=== PATIENT | male | born 1965 | race Caucasian/White ===

== ENCOUNTER 2023-08-11 11:32 | Outpatient (CLI) | payer BC | END 2023-08-11 11:33 | disposition home or self-care (01) | LOC: LABBT 11:32 | PROVIDERS: ATTEND Urology | DX: Z01.812 Encounter for preprocedural laboratory examination (principal); N20.1 Calculus of ureter | CPT/HCPCS: 87086 ==

== ENCOUNTER 2023-08-17 12:06 | Day surgery (SDC) | payer BC ==
[2023-08-11 11:49] VITALS: BMI 23.7
[2023-08-17] MEDS ORDERED: Lidocaine 1% PF 5 ML VIAL ONE ×2 (15:03→15:14)
[2023-08-17] MEDS ORDERED: Succinylcholine 200 MG/10 ml SYRINGE FS ONE (15:03)
[2023-08-17] MEDS ORDERED: fentaNYL 50 mcg/mL 1 mL Vial ONE (15:03)
[2023-08-17] MEDS ORDERED: Ondansetron PF 4 MG/2 ML Vial ONE ×2 (15:03→15:14)
[2023-08-17] MEDS ORDERED: PROPOFOL 20 ML ONE (15:03)
[2023-08-17] MEDS ORDERED: Iopamidol 15 ML ONE (15:06)
[2023-08-17] MEDS ORDERED: LevoFLOXacin 500 mg/D5W 100 ML BAG ONE (15:10)
[2023-08-17] MEDS ORDERED: Glycopyrrolate 0.2 MG/ML 5 ML SYRINGE ONE ×2 (15:14→16:01)
[2023-08-17] MEDS ORDERED: Dexamethasone 20 MG/5 ML VIAL ONE ×2 (15:14→15:25)
[2023-08-17] MEDS ORDERED: PHENYLEPHRINE-NS 100 MCG/ML 10 ML SYRINGE ONE ×2 (15:14→15:26)
[2023-08-17] MEDS ORDERED: PROPOFOL 200 MG/20 ML VIAL ONE (15:14)
[2023-08-17] MEDS ORDERED: Rocuronium Bromide 10 MG/ML (10ML VIAL) ONE (15:14)
[2023-08-17] MEDS ORDERED: NEOSTIGMINE 3 MG/3 ML SYR 3 MG/3 ML SYRINGE ONE ×2 (15:14→16:01)
== END 2023-08-17 18:10 | disposition home or self-care (01) ==
LOC: SDC 12:06
PROVIDERS: ATTEND Urology
PROC: 0TC78ZZ Extirpation of Matter from Left Ureter, Via Natural or Artificial Opening Endoscopic (ICD-10-PCS; principal; 2023-08-17)
PROC: 0T778DZ Dilation of Left Ureter with Intraluminal Device, Via Natural or Artificial Opening Endoscopic (ICD-10-PCS; principal; 2023-08-17)
DX: N20.2 Calculus of kidney with calculus of ureter (principal); Z88.0 Allergy status to penicillin; Z79.899 Other long term (current) drug therapy
CPT/HCPCS: 74420; 82365; 88300; C1747; C1769; C2617; J1100; J1956; J2405; J2704; J3010; Q9967